=== PATIENT | female | born 1965 | race Two or more races ===

== ENCOUNTER 2020-09-09 12:49 | Emergency (ER) | payer MEDICARE, SELFPAY ==
--- NOTE | ~2020-09-09 | XR_ITS ---
EXAMINATION: XR KNEE, LEFT CLINICAL INFORMATION: Fall COMPARISON: None TECHNIQUE: Four views of the left knee. FINDINGS: There is a 3 component left knee replacement in satisfactory position. No fracture, dislocation or x-ray evidence of loosening is seen. There is no joint effusion. XR/XR knee LT 4V IMPRESSION: Satisfactory appearance of left knee replacement. No fracture or dislocation.
[2020-09-09 13:04] VITALS: BP 118/73; BP 134/76; PULSE 60; RESP 18; TEMP 36.3; O2SAT 100; BMI 43.9
== END 2020-09-09 17:07 | disposition left against medical advice (07) ==
PROVIDERS: Emergency Provider Internal Medicine
DX: M54.5 Low back pain (principal); M25.562 Pain in left knee; M25.561 Pain in right knee
CPT/HCPCS: 73564; 99282; 99283